=== PATIENT | male | born 1985 | race Caucasian/White ===

== ENCOUNTER 2018-09-08 10:19 | Emergency (ER) | payer OTHER ==
[2018-09-08] MEDS ORDERED: Sodium Chloride 0.9% 2,000 ML IV STA (10:55)
[2018-09-08] MEDS ORDERED: Albuterol-Ipratrop 3 mg / 0.5 (3 ml) UD INH STA (10:55)
--- NOTE | 2018-09-08 10:58 | ED PDOC ---
HPI: General Adult Time Seen by Provider: 09/08/18 10:56 Chief Complaint (Nursing): Flu-like Symptoms Chief Complaint (Provider): fever/cough History Per: Patient (33 y/o male here with fever/cough x 48 hours. Denies any vomiting/diarrhea. NO ill contacts. Is a smoker. Took OTC medications without improvement of symptoms.) Past Medical History Reviewed: Historical Data, Nursing Documentation, Vital Signs Vital Signs: Last Vital Signs Temp 102.8 F H 09/08/18 10:41 Pulse 107 H 09/08/18 10:41 Resp 18 09/08/18 10:41 BP 116/70 09/08/18 10:41 Pulse Ox 94 L 09/08/18 10:41 - Family History Family History: States: No Known Family Hx - Immunization History Hx Influenza Vaccination: No Hx Pneumococcal Vaccination: No - Home Medications Home Medications: Ambulatory Orders Medication Instructions Recorded Acetaminophen [Acetaminophen Extra 2 tab PO Q6 PRN #24 tablet 09/08/18 Strength] Albuterol HFA [Ventolin HFA 90 2 puff IH [id number] PRN #1 inh 09/08/18 mcg/actuation (8 g)] Ibuprofen [Motrin Tab] 800 mg PO Q8 PRN #21 tab 09/08/18 Oseltamivir Phosphate [Tamiflu] 75 mg PO BID #10 capsule 09/08/18 - Allergies Allergies/Adverse Reactions: Allergies Allergy/AdvReac Type Severity Reaction Status Date / Time No Known Allergies Allergy Verified 09/08/18 10:48 Review of Systems ROS Statement: Except As Marked, All Systems Reviewed And Found Negative Constitutional: Positive for: Fever Respiratory: Positive for: Cough Physical Exam - Reviewed Nursing Documentation Reviewed: Yes Vital Signs Reviewed: Yes - Physical Exam Appears: Positive for: Well, Non-toxic, No Acute Distress Head Exam: Positive for: ATRAUMATIC, NORMAL INSPECTION, NORMOCEPHALIC Skin: Positive for: Normal Color, Warm, DRY Eye Exam: Positive for: EOMI, Normal appearance, PERRL ENT: Positive for: Normal ENT Inspection Neck: Positive for: Normal, Painless ROM Cardiovascular/Chest: Positive for: Regular Rate, Rhythm Respiratory: Positive for: CNT, Normal Breath Sounds Gastrointestinal/Abdominal: Positive for: Normal Exam, Soft Back: Positive for: Normal Inspection Extremity: Positive for: Normal ROM Neurologic/Psych: Positive for: Alert, Oriented - Laboratory Results Result Diagrams: 09/08/18 11:40 09/08/18 11:40 - ECG O2 Sat by Pulse Oximetry: 94 - Progress ED Course And Treament: NS 1 liter wide open Acetaminophen 975mg x 1 dose Duoneb x 1 dose influenza a positive tamiflu 75 mg x 1 dose cxr: nad Disposition - Clinical Impression Clinical Impression: Influenza - Patient ED Disposition Is Patient to be Admitted: No - Disposition Disposition: Routine/Home Disposition Time: 12:27 Condition: FAIR Prescriptions: Albuterol HFA [Ventolin HFA 90 mcg/actuation (8 g)] 2 puff IH [id number] PRN #1 inh PRN Reason: Shortness Of Breath Acetaminophen [Acetaminophen Extra Strength] 2 tab PO Q6 PRN #24 tablet PRN Reason: Fever >100.4 F Ibuprofen [Motrin Tab] 800 mg PO Q8 PRN #21 tab PRN Reason: Fever >100.4 F Oseltamivir Phosphate [Tamiflu] 75 mg PO BID #10 capsule Instructions: Flu, Adult (DC) Forms: [facility] ED School/Work Excuse
[2018-09-08] MEDS ORDERED: Albuterol-Ipratrop 3 mg / 0.5 (3 ml) UD ONE (11:23)
--- NOTE | 2018-09-08 11:23 | RAD ---
Date of service: 09/08/2018 HISTORY: routine COMPARISON: No prior. TECHNIQUE: Chest PA and lateral FINDINGS: LUNGS: No active pulmonary disease. PLEURA: No significant pleural effusion identified. No pneumothorax apparent. CARDIOVASCULAR: No aortic atherosclerotic calcification present. Normal cardiac size. No pulmonary vascular congestion. OSSEOUS STRUCTURES: No significant abnormalities. VISUALIZED UPPER ABDOMEN: Normal. OTHER FINDINGS: None. IMPRESSION: No active disease.
[2018-09-08 11:53] LABS: VENOUS BLOOD GAS PCO2 31 mmHg (40-60); VENOUS BLOOD GAS PO2 36 mm/Hg (30-55)
[2018-09-08 11:54] LABS: VENOUS BLOOD GAS BASE EXCESS 1.8 mmol/L (0.0-2.0)
[2018-09-08 12:07] LABS: BASO % 0.4 % (0.0-2.0); EOS # 0.1 K/uL (0.0-0.7); EOS % 1.5 % (0.0-4.0); HEMOGLOBIN 13.5 g/dL (12.0-18.0); LYMPH # 0.7 K/uL (1.0-4.3); LYMPH % 10.7 % (20.0-40.0); MEAN CELL VOLUME 81.5 fl (80.0-94.0); MEAN CORPUSCULAR HEMOGLOBIN 26.1 pg (27.0-31.0); MEAN CORPUSCULAR HGB CONC 32.1 g/dL (33.0-37.0); MEAN PLATELET VOLUME 8.4 fl (7.2-11.7); MONO # 0.9 K/uL (0.0-0.8); MONO % 13.8 % (0.0-10.0); NEUT % 73.6 % (50.0-75.0); NRBC % 0.1 % (0.0-0.0); RBC 5.16 Mil/uL (4.40-5.90); RED CELL DISTRIBUTION WIDTH 13.7 % (11.5-14.5); WHITE BLOOD COUNT 6.8 K/uL (4.8-10.8)
[2018-09-08 12:20] LABS: ALB/GLOB RATIO 1.3 (1.0-2.1); ALBUMIN 4.1 g/dL (3.5-5.0); ALT/SGPT 43 U/L (21-72); AST/SGOT 30 U/L (17-59); BLOOD UREA NITROGEN 13 mg/dl (9-20); GFR NON-AFRICAN AMERICAN > 60
[2018-09-08 13:33] VITALS: O2SAT 98
[2018-09-08 14:35] VITALS: PULSE 69; RESP 16; TEMP 98.3
[2018-09-08 15:00] VITALS: BP 111/64
== END 2018-09-08 15:13 | disposition home or self-care (01) ==
LOC: H.ER 10:19
DX: J11.1 Influenza due to unidentified influenza virus with other respiratory manifestations (principal)
CPT/HCPCS: 71046; 80053; 82803; 85025; 87040; 87804; 94640; 99283; J7030